=== PATIENT | male | born 1980 | race Caucasian/White ===

== ENCOUNTER 2022-12-31 15:51 | Emergency (ER) | payer BC, SELFPAY ==
[2022-12-31] VITALS (7 sets, daily range): BP systolic 128–131; BP diastolic 82–87; PULSE 66–79; RESP 16–18; TEMP 36.6; O2SAT 95–98; BMI 26.6
--- NOTE | 2022-12-31 15:58 | ECG_ITS ---
[facility] Test Date: 2022-12-31 Pat Name: Tone Muir Department: Room: Gender: Male Rn School: : 1980 Requested By: Socorro Garcia Order Number: [id number] Candace MD: Mike Jackson M.D. Measurements Intervals [place] Rate: 73 P: 47 MT: 145 QRS: 30 QRSD: 92 T: 15 QT: 366 QTc: 406 Interpretive Statements SINUS RHYTHM No previous ECG available for comparison Electronically Signed On 12-31-2022 21:43:26 CDT by Mike Jackson M.D. [email or web address]
--- NOTE | 2022-12-31 18:02 | ED_ITS ---
HPI - Arrhythmia/Palpitations General: Chief Complaint: Arrhythmia/Palpitations Stated Complaint: irregular heartbeat, dizzy Time Seen by Provider: 12/31/22 18:01 History of Present Illness: 42-year-old male patient comes in today for complaints of irregular heart rate. Patient appears nontoxic. Patient reports no pain. Patient reports he will be sitting and just resting and he will feel irregular beat. Patient has talked with his primary care and is set up for Holter monitor to be placed tomorrow. Patient denies any chest pain or shortness of breath. Patient reports no recent illness. 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 Patient denies use of caffeine or nicotine. Patient does occasionally drink alcohol but not routinely. Associated symptoms: Deny nausea or vomiting Review of Systems 2 General: Reports: 10 or more systems reviewed and unremarkable except in HPI and below Const: Denies: fever(s) Card: Reports: palpitations Resp: Denies: dyspnea GI: Denies: nausea or vomiting : Denies: difficulty urinating Skin/Breast: Denies: rash Physical Exam Const: COMMON NORMALS: alert HENMT: COMMON NORMALS: normocephalic HEAD & SCALP: normocephalic Neck/C-Spine: COMMON NORMALS: full ROM Resp: COMMON NORMALS: normal respiratory effort and clear to auscultation bilaterally AUSCULTATION: clear to auscultation bilaterally Cardio: COMMON NORMALS: regular rate and regular rhythm RATE: regular rate RHYTHM: regular rhythm GI: COMMON NORMALS: Soft to palpation PALPATION: Yes Soft to palpation Back/Pelvis: COMMON NORMALS: thoracic and lumbar spine normal to inspection Extremity: COMMON NORMALS: full ROM Neuro: SENSORIUM/ORIENTATION: Yes alert Skin: COMMON NORMALS: turgor normal GENERAL SKIN EXAM: turgor normal Course Vital Signs: Vital signs: Vital Signs Temperature 97.9 F 12/31/22 15:56 Pulse Rate 66 12/31/22 18:45 Respiratory Rate 16 12/31/22 18:28 Blood Pressure 129/83 12/31/22 18:45 Pulse Oximetry 96 12/31/22 18:45 Oxygen Delivery Me thod Room Air 12/31/22 18:28 MDM - Arrhythmia/Palpitations Medical Decision Making 42-year-old male patient comes in today for concerns of irregularity in heart rate. Patient noticed that yesterday while at the dentist and today while with his daughter at the offender job retention specialist's office. Patient appears nontoxic. Patient has discussed this with his primary care and is set up for Holter monitor to be put on tomorrow. Patient denies any shortness of breath or chest pain. Patient denies any caffeine or nicotine. Patient does drink occasional alcohol. Vital signs are normal. EKG showed a normal sinus rhythm with occasional PVC on 2- lead monitor. Differential diagnosis includes but not limited to anxiety disorder, unifocal PVCs, electrolyte imbalance, arrhythmia. CBC and CMP were normal. EKG showed a normal sinus rhythm. On the 2-lead we did note unifocal PVC which patient reported the abnormal sensation. I believe the sensation patient is having his occasional/frequent unifocal PVCs. Patient is scheduled to have a Holter monitor for the next 30 days which he should get and then monitor and follow-up. No signs of acute illness or severe illness is noted at this time. Patient was stable and discharged home with recommendations for follow-up with the ER as needed. Lab Data 12/31/22 18:24 12/31/22 18:24 Laboratory Results WBC 6.90 10^3/uL (3.29-11.43) 12/31/22 18: RBC 5.08 10^6/uL (3.85-5.65) 12/31/22 18: Hgb 15.30 g/dL (11.27-16.99) 12/31/22 18: Hct 43.9 % (37-53) 12/31/22 18: MCV 86.4 fl (82-101) 12/31/22 18: MCH 30.1 pg (27-33) 12/31/22 18: MCHC 34.9 g/dL (30-55) 12/31/22 18: RDW 12.8 % (12.1-15.1) 12/31/22 18: Plt Count 284 10^3/cmm (157-399) 12/31/22 18: MPV 9.7 fL (7.4-10.4) 12/31/22 18: Neut % (Auto) 57.7 % 12/31/22 18: Lymph % (Auto) 30.3 % 12/31/22 18: [place] % (Auto) 9.4 % 12/31/22 18:24 Eos % (Auto) 1.7 % 12/31/22 18:24 Baso % (Auto) 0.6 % 12/31/22 18:24 Neut # (Auto) 3.98 10^3/uL (1.8-7.7) 12/31/22 18:24 Lymph # (Auto) 2.1 10^3/uL (0.8-4.8) 12/31/22 18:24 [place] # (Auto) 0.7 10^3/uL (0.2-0.9) 12/31/22 18:24 Eos # (Auto) 0.1 10^3/uL (0.0-0.8) 12/31/22 18: Baso # (Auto) 0.0 10^3/uL (0.0-0.1) 12/31/22 18:24 Nucleated RBC % (auto) 0 % 12/31/22 18: Nucleated RBCs # 0.0 /100WBC 12/31/22 18:24 Sodium 138 mmol/L (136-145) 12/31/22 18:24 Potassium 3.8 mmol/L (3.5-5.1) 12/31/22 18:24 Chloride 101 mmol/L (98-107) 12/31/22 18:24 Carbon Dioxide 27 mmol/L (22-29) 12/31/22 18:24 Anion Gap 13.8 (5-19) 12/31/22 18:24 BUN 12 mg/dL (6-20) 12/31/22 18:24 Creatinine 0.8 mg/dL (0.7-1.2) 12/31/22 18:24 GFR Calculation 106.5 mL/min (90-130) 12/31/22 18:24 Glucose 78 mg/dL (65-115) 12/31/22 18:24 Calculated Osmolality 285 mOsm/kg (285-295) 12/31/22 18:24 Calcium 9.3 mg/dL (8.5-10.5) 12/31/22 18:24 Total Bilirubin 0.5 mg/dL (0.15-1.2) 12/31/22 18:24 AST 20 U/L (0-40) 12/31/22 18:24 ALT 17 U/L (0-41) 12/31/22 18:24 Alkaline Phosphatase 77 U/L (40-130) 12/31/22 18:24 Total Protein 8.2 g/dL (6.6-8.7) 12/31/22 18:24 Albumin 5.0 g/dL (3.5-5.2) 12/31/22 18:24 Globulin 3.2 g/dL (1.3-4.6) 12/31/22 18:24 No radiology studies performed this visit EKG Data EKG 1: EKG interpretation date: 12/31/22 EKG interpretation time: 16:08 Prior EKG tracings: not available for review Interpretation: EKG shows a sinus rhythm with a regular rate of 73 bpm. No ectopy or ST elevation is noted. No prior exam was available for comparison. Computer generated interpretation: Sinus rhythm, normal EKG, unconfirmed report. Discharge Plan Discharge Patient Disposition: Home Clinical Impression: Frequent unifocal PVCs Condition: Stable Discharge Orders: Discharge ED (Routine); Ordered 12/31/22 Ordered By: Gordo Tuttle Referrals: Kandice Diaz MD [Primary Care Provider] - Patient Instructions: Premature Ventricular Contractions (ED) Activity Restrictions/Additional Instructions: Avoid the use of alcohol, nicotine, and caffeine. Drink plenty of water. Healthy diet and exercise. Follow-up with primary care regarding Holter monitor. Return to ER for worsening symptoms such as severe shortness of breath, severe chest pain, or new concerns. Coding Level of Care Code ED [employer]er for Juan Jose Cobb
[2022-12-31 19:02] LABS: Basophils % 0.6 %; Eosinophils # 0.1 10^3/uL (0.0-0.8); Eosinophils % 1.7 %; Hematocrit 43.9 % (37-53); Lymphocytes # 2.1 10^3/uL (0.8-4.8); Lymphocytes % 30.3 %; Mean Corpuscular HGB Conc 34.9 g/dL (30-55); Mean Corpuscular Hemoglobin 30.1 pg (27-33); Mean Corpuscular Volume 86.4 fl (82-101); Mean Platelet Volume 9.7 fL (7.4-10.4); Monocytes # 0.7 10^3/uL (0.2-0.9); Monocytes % 9.4 %; Neutrophils # 3.98 10^3/uL (1.8-7.7); Neutrophils % 57.7 %; Nucleated Red Blood Cells % 0 %; Platelet Count 284 10^3/cmm (157-399); Red Blood Count 5.08 10^6/uL (3.85-5.65); Red Cell Distribution Width 12.8 % (12.1-15.1)
[2022-12-31 19:13] LABS: Alanine Aminotransferase 17 U/L (0-41); Alkaline Phosphatase 77 U/L (40-130); Anion Gap 13.8 (5-19); Aspartate Amino Transferase 20 U/L (0-40); Blood Urea Nitrogen 12 mg/dL (6-20); Calcium 9.3 mg/dL (8.5-10.5); Carbon Dioxide 27 mmol/L (22-29); Chloride 101 mmol/L (98-107); Globulin 3.2 g/dL (1.3-4.6); Glomerular Filtration Rate 106.5 mL/min (90-130); Glucose 78 mg/dL (65-115); Osmolality Calculated 285 mOsm/kg (285-295); Potassium 3.8 mmol/L (3.5-5.1); Sodium 138 mmol/L (136-145); Total Bilirubin 0.5 mg/dL (0.15-1.2); Total Protein 8.2 g/dL (6.6-8.7)
== END 2022-12-31 19:36 | disposition home or self-care (01) ==
PROVIDERS: Emergency Provider Nurse Practitioner Family; PCP Family Medicine
DX: I49.3 Ventricular premature depolarization (principal)
CPT/HCPCS: 80053; 85025; 93005; 99284